=== PATIENT | female | born 1995 | race African-American/Black ===

== ENCOUNTER 2017-06-28 22:59 | Outpatient (CLI) | payer MEDICAID ==
[2017-06-28 23:39] LABS: APPEARANCE,URINE CLEAR; BILIRUBIN,URINE NEGATIVE (NEGATIVE); GLUCOSE, URINE NEGATIVE (NEGATIVE); KETONES,URINE NEGATIVE (NEGATIVE); LEUKOCYTE ESTERASE,URINE NEGATIVE (NEGATIVE); NITRITE,URINE NEGATIVE (NEGATIVE); PROTEIN,URINE 30 mg/dL (NEGATIVE); URINE SPECIFIC GRAVITY 1.032; UROBILINOGEN,URINE NEGATIVE mg/dL (<2.0)
[2017-06-28 23:56] LABS: URINE BARBITURATES SCREEN NEGATIVE; URINE METHADONE SCREEN NEGATIVE; URINE OPIATES LOW NEGATIVE; URINE PHENCYCLIDINE SCREEN NEGATIVE
== END 2017-06-29 00:07 | disposition home or self-care (01) ==
LOC: LC 22:59
PROVIDERS: ATTEND Obstetrics & Gynecology
PROC: 4A1HXCZ Monitoring of Products of Conception, Cardiac Rate, External Approach (ICD-10-PCS; principal; 2017-06-28)
DX: O47.03 False labor before 37 completed weeks of gestation, third trimester (principal); Z3A.31 31 weeks gestation of pregnancy
CPT/HCPCS: 80307; 81001

== ENCOUNTER 2017-07-09 13:02 | Observation (INO) | payer MEDICAID ==
[2017-07-09 14:02] LABS: APPEARANCE,URINE CLOUDY; BILIRUBIN,URINE NEGATIVE (NEGATIVE); GLUCOSE, URINE NEGATIVE (NEGATIVE); KETONES,URINE NEGATIVE (NEGATIVE); LEUKOCYTE ESTERASE,URINE NEGATIVE (NEGATIVE); NITRITE,URINE NEGATIVE (NEGATIVE); PROTEIN,URINE >=500 mg/dL (NEGATIVE); URINE SPECIFIC GRAVITY 1.033; UROBILINOGEN,URINE NEGATIVE mg/dL (<2.0)
[2017-07-09 14:31] LABS: URINE BARBITURATES SCREEN NEGATIVE; URINE METHADONE SCREEN NEGATIVE; URINE PHENCYCLIDINE SCREEN NEGATIVE
[2017-07-09 14:37] LABS: URINE OPIATES LOW UNCONFIRMED POSITIVE
--- NOTE | 2017-07-09 16:23 | Non Stress Test Report ---
Non Stress Test Datetime Report Generated by CPN: 07/09/2017 16:23 DEMOGRAPHIC EGA NST: 33.2 INDICATION Indication for Study: Ordered by Provider MONITORING Monitor Explained: Monitor Explained; Test Explained; Patient Verbalized Understanding Time on Monitor: 07/09/2017 13:45 Time off Monitor: 07/09/2017 16:21 NST Duration: 156 NST INTERVENTIONS NST Interventions: PO Hydration; Reposition Patient Physician Notified NST: Dr. Yin BABY A: [id number] BABY A Movement : Present Contraction Frequency : 0 FHR Baseline : 135 Accelerations : 15X15 Decelerations : None Variability : Moderate 6-25bpm NST Review: Meets Criteria for Reactive NST NST Review and Verified By : EMMANUEL Renteria Results: Reactive NST REPORT Report Trigger: Send Report
[2017-07-09 16:27] LABS: HEMATOCRIT 30.6 % (36.0-47.0); HEMOGLOBIN 10.1 g/dL (12.0-15.5); HGB HCT DIFFERENCE -0.3; MEAN CORPUSCULAR HEMOGLOBIN 25.6 pg (27.0-33.4); MEAN CORPUSCULAR HGB CONC 33.2 g/dL (32.0-36.0); MEAN CORPUSCULAR VOLUME 77 fl (80-97); RED BLOOD COUNT 3.96 10^6/uL (3.72-5.28); RED CELL DISTRIBUTION WIDTH 18.6 % (11.5-14.0); WHITE BLOOD COUNT 9.6 10^3/uL (4.0-10.5)
[2017-07-09 16:48] LABS: ALANINE AMINOTRANSFERASE 28 U/L (9-52); ALBUMIN 2.9 g/dL (3.5-5.0); ALKALINE PHOSPHATASE 125 U/L (38-126); ANION GAP 10 (5-19); ASPARTATE AMINO TRANSFERASE 14 U/L (14-36); BILIRUBIN,DIRECT 0.2 mg/dL (0.0-0.4); BILIRUBIN,TOTAL 0.2 mg/dL (0.2-1.3); BLOOD UREA NITROGEN 15 mg/dL (7-20); CARBON DIOXIDE 21 mmol/L (22-30); CHLORIDE 109 mmol/L (98-107); CREATININE RESULT 0.63 mg/dL (0.52-1.25); GLUCOSE 68 mg/dL (75-110); LDH 488 U/L (313-618); POTASSIUM 4.5 mmol/L (3.6-5.0); SODIUM 139.5 mmol/L (137-145); TOTAL PROTEIN 5.5 g/dL (6.3-8.2); URIC ACID 4.6 mg/dL (2.5-6.2)
[2017-07-09] MEDS ORDERED: AMOXICILLIN TRIHYDRATE 500 MG CAPSULE PO ONE (19:15)
--- NOTE | 2017-07-10 01:18 | RADIOLOGY REPORT (SQ) ---
EXAM DESCRIPTION: U/S PROFILE W/O STRESS COMPLETED DATE/TIME: 07/10/2017 12:20 am REASON FOR STUDY: Growth 2nd to morbid obesity and preeclampsia COMPARISON: None. TECHNIQUE: Limited wright-scale realtime and static images of the fetus to measure specified parameter s. LIMITATIONS: None. FINDINGS: HEART RATE: 133 beats per minute. JOSE: 17.3 cm. POSTURE AND TONE: 2 points. MOVEMENT: 2 points. BREATHING MOVEMENT: 0 points. QUALITATIVE JOSE: 2 points. OTHER: No other significant finding. IMPRESSION: BIOPHYSICAL PROFILE: 03/03. Trimester of : Third - 28 weeks to delivery COMMENT: BREATHING MOVEMENTS: 2 POINTS: PRESENT 0 POINTS: ABSENT MOTION: 2 POINTS: PRESENT 0 POINTS: ABSENT TONE: 2 POINTS: PRESENT 0 POINTS: ABSENT AMNIOTIC FLUID VOLUME: 2 POINTS: LARGEST POCKET GREATER THAN 2 CM DEPTH. 0 POINTS: NO POCKET OF 2 CM. TECHNICAL DOCUMENTATION: JOB ID: [id number] [employer]- All Rights Reserved
--- NOTE | 2017-07-10 01:19 | RADIOLOGY REPORT (SQ) ---
EXAM DESCRIPTION: U/S OB LIMITED COMPLETED DATE/TIME: 07/10/2017 12:20 am REASON FOR STUDY: Growth 2nd to morbid obesity and preeclampsia COMPARISON: None. TECHNIQUE: Limited transabdominal grayscale ultrasound for evaluation of specific requested obstetri harvey parameters. LIMITATIONS: None. FINDINGS: JOSE: 17.3 cm. FHR: 133 beats per minute. PRESENTATION: Cephalic. OTHER: No other significant findings. IMPRESSION: LIMITED OBSTETRICAL ULTRASOUND WITH MEASURED PARAMETERS DELINEATED ABOVE. Trimester of : Third trimester - 28 weeks to delivery. TECHNICAL DOCUMENTATION: JOB ID: [id number] [employer]- All Rights Reserved
[2017-07-10] MEDS ORDERED: AMOXICILLIN TRIHYDRATE 500 MG CAPSULE PO ONE (07:30)
[2017-07-10] MEDS ORDERED: AMOXICILLIN TRIHYDRATE 500 MG CAPSULE PO SCH (10:00)
--- NOTE | 2017-07-10 10:21 | PDOC PROGRESS REPORT ---
Subjective Progress Note for:: 07/10/17 Subjective:: Pt denies HAs, visual changes, epigastric or RUQ pain. Pt states she has not perceived movement this morning but also states this is baby's normal rest time. Blood pressures are still mild range HTN Physical Exam - Physical Exam Vital Signs: Temp Pulse Resp BP Pulse Ox 97.8 F 77 16 151/93 H 96 07/10/17 08:04 07/10/17 08:04 07/10/17 08:04 07/10/17 08:04 07/10/17 08:04 Intake & Output 07/09/17 07/10/17 07/11/17 06:59 06:59 06:59 Weight 150.8 kg General appearance: PRESENT: no acute distress, cooperative Head exam: PRESENT: atraumatic Respiratory exam: PRESENT: clear to auscultation peg, symmetrical, unlabored Cardiovascular exam: PRESENT: systolic murmur - mild systolic ejection murmur GI/Abdominal exam: PRESENT: normal bowel sounds, soft, other - gravid uterus and non-tender Extremities exam: PRESENT: pedal edema, +2 edema, other - lower extremities feel tight and painful Musculoskeletal exam: PRESENT: ambulatory, full ROM Neurological exam: PRESENT: alert, oriented to person, oriented to place, oriented to time, CN II-XII grossly intact Psychiatric exam: PRESENT: normal mood Skin exam: PRESENT: intact, warm - Obstetrical Exam Tender: No Result Laboratory Results: 07/09/17 16:00 07/09/17 16:00 07/09/17 07/09/17 07/09/17 13:26 16:00 16:00 WBC 9.6 RBC 3.96 Hgb 10.1 L Hct 30.6 L MCV 77 L MCH 25.6 L MCHC 33.2 RDW 18.6 H Plt Count 330 Sodium 139.5 Potassium 4.5 Chloride 109 H Carbon Dioxide 21 L Anion Gap 10 BUN 15 Creatinine 0.63 Est GFR ( Amer) > 60 Est GFR (Non-Af Amer) > 60 Glucose 68 L Uric Acid 4.6 Calcium 9.0 Total Bilirubin 0.2 AST 14 ALT 28 Alkaline Phosphatase 125 Total Protein 5.5 L Albumin 2.9 L Urine Color YELLOW Urine Appearance CLOUDY Urine pH 6.0 Ur Specific [place] 1.033 Urine Protein >=500 H Urine Glucose (UA) NEGATIVE Urine Ketones NEGATIVE Urine Blood NEGATIVE Urine Nitrite NEGATIVE Ur Leukocyte Esterase NEGATIVE Urine WBC (Auto) 6 Urine RBC (Auto) 4 Impressions: Stress Test 07/09/17 00:00 IMPRESSION: BIOPHYSICAL PROFILE: 03/03. Trimester of : Third - 28 weeks to delivery Obstetrics Ultrasound 07/09/17 00:00 IMPRESSION: LIMITED OBSTETRICAL ULTRASOUND WITH MEASURED PARAMETERS DELINEATED ABOVE. Trimester of : Third trimester - 28 weeks to delivery. Assessment & Plan - Diagnosis (1) Chronic hypertension affecting Is this a current diagnosis for this admission?: Yes (2) Proteinuria affecting in third trimester Is this a current diagnosis for this admission?: Yes (3) Preeclampsia Is this a current diagnosis for this admission?: Yes - Plan Summary Plan Summary: Patient to have growth ultrasound and NST this morning Continue diabetic diet Continue 24hr urine collection, due to end around 5pm today After 24hr urine is in, will have a better idea of how to address patients care going forward Discussed concerns and findings with patient and family
[2017-07-10] MEDS: AMOXICILLIN TRIHYDRATE 500 MG CAPSULE PO SCH ×2 (15:42→21:25)
[2017-07-10 18:17] LABS: URINE CREATININE 142.9 mg/dL (16-327)
[2017-07-10 18:38] LABS: URINE PROTEIN 432.9 mg/dL (<12)
--- NOTE | 2017-07-10 20:25 | PDOC DISCHARGE SUMMARY ---
General - Admit/Disc Date/PCP Admission Date/Primary Care Provider: 07/09/17 17:21 Discharge Date: 07/10/17 - Discharge Diagnosis (1) Chronic hypertension affecting Is this a current diagnosis for this admission?: Yes (2) Preeclampsia Is this a current diagnosis for this admission?: Yes (3) Proteinuria affecting in third trimester Is this a current diagnosis for this admission?: Yes - Additional Information Home Medications: Amoxicillin 500 mg PO TID 07/09/17 Hydrocodone/Acetaminophen [[place] 10-325 mg Tablet] 1 tab PO Q4HP PRN 07/09/17 History of Present Illness History of Present Illness: DANIEL FITZGERALD is a 21 year old female Hospital Course Hospital Course: 24 hour urine collected and returned at >5700 mg. Pressures have been stable with two isolated bps >160/80. Mild MURRAY only. No other stigmata. Physical Exam - Physical Exam Vital Signs: Temp Pulse Resp BP Pulse Ox 98.1 F 74 14 166/84 H 100 07/10/17 16:06 07/10/17 16:06 07/10/17 16:06 07/10/17 16:06 07/10/17 16:06 Intake & Output 07/09/17 07/10/17 07/11/17 06:59 06:59 06:59 Weight 150.8 kg General appearance: PRESENT: no acute distress, cooperative GI/Abdominal exam: PRESENT: soft - No dimpling of abdominal skina Extremities exam: PRESENT: +1 edema Musculoskeletal exam: PRESENT: ambulatory Result Laboratory Results: 07/09/17 16:00 07/09/17 16:00 07/09/17 07/09/17 15:00 15:00 Ur 24 Hour Volume 1320 1320 Ur Total Protein 24 Hr 5714 H Impressions: Stress Test 07/09/17 00:00 IMPRESSION: BIOPHYSICAL PROFILE: 8. Trimester of : Third - 28 weeks to delivery Obstetrics Ultrasound 07/09/17 00:00 IMPRESSION: LIMITED OBSTETRICAL ULTRASOUND WITH MEASURED PARAMETERS DELINEATED ABOVE. Trimester of : Third trimester - 28 weeks to delivery. Plan Discharge Plan: strict precautions reviewed with patient and her family member present in room. Advised of signs and symptoms to look for in regards to worsening PreEclampsia and to return to the L[facility]D or to [facility] immediately if begins to have worsening symptoms. She and familymember both voiced understanding. Did discuss that will try to get to 37 wks for delivery due to the PreEclampsia, but if she does advance to PreEclampsia with Severe Features, earlier delivery will be necessary. Time Spent: Greater than 30 Minutes
[2017-07-10] MEDS ORDERED: ACETAMINOPHEN 325 MG TABLET PO ONE (20:30)
[2017-07-10 21:00] VITALS: BP 166/84
--- NOTE | 2017-07-20 10:06 | Admission Physical ---
Datetime Report Generated by CPN: 07/20/2017 10:06 CURRENT ADMISSION Hx Assessment: The History has been Reviewed and is Current Chief Complaint: Signs/Symptoms Gestational HTN; Other Chief Complaint Other: Swelling in lower extremities and hands ALLERGIES Medication Allergies: No Medication Allergies: No Known Allergies (06/28/2017) Medication Allergies: No Known Allergies (12/13/2013) OBSTETRICAL HISTORY EDC: 08/25/2017 00:00 EDC: 08/25/2017 00:00 : 1 : 1 Para: 0 Para: 0 Term: 0 Term: 0 : 0 : 0 SAB: 0 SAB: 0 IAB: 0 IAB: 0 Ectopic: 0 Livin Livin Cesareans: 0 VBACs: 0 Multiple Births: 0 Gestational Diabetes: Yes Rh Sensitization: No Incompetent Cervix: No KENNETH: No Infertility: No ART Treatment: No Uterine Anomaly: No IUGR: No Hx Previous C/S: No Macrosomia: No Hx Loss/Stillborn: No PIH: No Hx : No Placenta Previa/Abruption: No Depression/PP Depression: No PTL/PROM: No Post Hemorrhage: No Current Procedures: Ultrasound Obstetrical History Comments: MFM for GDM and Von Willebrand syndrome SEE RECORDS Alcohol: No Marijuana : No Cocaine: No Other Illicit Drugs: No Cigarettes: Never Smoker. 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 Heart Disease: No Hosp/Surgery: Yes Autoimmune Disorder: No Anesthetic Complications: No Kidney Disease: No Abnormal Pap Smear: No Neuro/Epilepsy: No Psychiatric Disorders: No Other Medical Diseases: Yes Hepatitis/Liver Disease: No Significant Family History: No Varicosities/Phlebitis: No Trauma/Violence : No Medical History Comments: _C due to heavy periods; Von Williebrand INFECTIOUS HISTORY Gonorrhea: No Genital Herpes: No Chlamydia: No Tuberculosis: No Syphilis: No Hepatitis: No HIV/AIDS Exposure: No Rash or Viral Illness: No HPV: No PHYSICAL EXAM General: Normal HEENT: Normal Neurologic: Normal Thyroid: Deferred Heart: Normal Lungs: Normal Breast: Deferred Back: Normal Abdomen: Normal Genitourinary Exam: Deferred Extremities: Abnormal DTRs: Normal Pelvic Type: Not Done Physical Exam Comments: Bilateral lower extremity pitting edema Vital Signs: Reviewed Details Vital Signs: Mild range HTN FETUS A Monitoring: Doppler FHR- Baseline: 140s Variability: Moderate 6-25bpm Accelerations: 15X15 Decelerations: None FHR Category: Category I Admit Comment: 21yo G1 @ 33.2 presents with concerns of lower extremity swelling that the patient has noted since last Tuesday. Today patient has persistent mild range HTN, normal severe PreE labs but significant protein on urine dip. Pt denies any HAs, visual changes, epigastric or RUQ pain. Pt reports good fm, no vb, no lof, no regular ctxs. Pt was diagnosed with CHTN this 2nd to intermittent HTN prior to 20wks gestation. is complicated by A1GDM, Von Willebrands and morbid obesity. Last growth u/s was and growth at the 37th %tile, normal fluid. Pt was scheduled for repeat u/s on 11 July 2017. Discussed with patient and her family concerns in regards to BP and significant proteinuria on urine dip in addition to patients predisposition for developing preeclampsia. Patient's mother agrees with 23hr obs and appear to understand the concern for HTN and proteinuria inpregnancy. Patient is fine with staying overnight as long as she gets to eat. PLANS FOR LABOR AND DELIVERY Feeding Preference: Breast Circumcision: Yes INFORMED CONSENT Signature: Electronically signed by MD Kenneth AkersSELECT [facility] on 07/09/2017 at 19:26 with User ID: [email or web address]
== END 2017-07-10 21:33 | disposition home or self-care (01) ==
LOC: LC 13:02 → LR 17:21 → 2S 19:50
PROVIDERS: ADMIT Obstetrics & Gynecology; ATTEND Obstetrics & Gynecology
PROC: 4A0HXCZ Measurement of Products of Conception, Cardiac Rate, External Approach (ICD-10-PCS; principal; 2017-07-09)
DX: O11.3 Pre-existing hypertension with pre-eclampsia, third trimester (principal); O10.913 Unspecified pre-existing hypertension complicating pregnancy, third trimester; O12.13 Gestational proteinuria, third trimester; Z3A.33 33 weeks gestation of pregnancy
CPT/HCPCS: 59025; 36415; 82570; 82962; 83615; 84156; 84550; 85027; 80053; 81001; 80307; 76815; 76819; J3490; G0378